=== PATIENT | female | born 2000 | race Caucasian/White ===

== ENCOUNTER 2020-06-05 12:53 | Emergency (ER) | payer MEDICAID ==
--- NOTE | 2020-06-05 13:40 | EDM.PDOC ---
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 Stated Complaint: MISCARRIAGE Time Seen by Provider: 06/05/20 13:15 Source of Information: Reports: Patient, Family, RN Notes Reviewed History Limitations: Reports: No Limitations - History of Present Illness INITIAL COMMENTS - FREE TEXT/NARRATIVE: 19-year-old female presents emergency department a complaint of vaginal bleeding, she is a 4 para 1 estimated about 10 weeks intrauterine , states over the last 24 hours she has had vaginal bleeding with passing of tissue however she feels like there is still something in her vaginal vault - Related Data Allergies Allergy/AdvReac Type Severity Reaction Status Date / Time No Known Allergies Allergy Verified 06/05/20 13:04 Home Meds: Home Meds NK [No Known Home Meds] 06/05/20 [History] Past Medical History 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: , 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 Social & Family History - Tobacco Use Tobacco Use Status *Q: Never Tobacco User - Caffeine Use Caffeine Use: Reports: None - Recreational Drug Use Recreational Drug Use: No ED ROS GENERAL - Review of Systems Review Of Systems: See Below Constitutional: Reports: No Symptoms : Reports: Irregular Menses ED EXAM - Physical Exam Exam: See Below Text/Narrative:: Speculum exam done in the presence of nursing staff the office is consistent with multiple parity there is some clot present in the os this is easily removed with ring forceps no other tissues are appreciated it is nontender Exam Limited By: No Limitations General Appearance: Alert, WD/WN, No Apparent Distress Course - Vital Signs Last Recorded V/S: Last Vital Signs Temp 98.1 F 06/05/20 13:05 Pulse 107 H 06/05/20 13:05 Resp 16 06/05/20 13:05 BP 132/81 06/05/20 13:05 Pulse Ox 99 06/05/20 13:05 - Orders/Labs/Meds Orders: Active Orders 24 hr Category Date Time Status OB Transvaginal [US] Stat Exams 06/05/20 13:38 Ordered CBC WITH AUTO DIFF [HEME] Stat Lab 06/05/20 13:44 Received Labs: Laboratory Tests 06/05/20 06/05/20 06/05/20 Range/Units 13:40 13:47 13:47 Hgb 10.6 L (12.0-15.0) g/dL HCG, Quant 267 H (0-6) mIU/mL Urine Color Yellow (YELLOW) Urine Appearance Slightly cloudy A (CLEAR) Urine pH 5.5 (5.0-8.0) Ur Specific [place] >= 1.030 (1.008-1.030) Urine Protein Negative (NEGATIVE) mg/dL Urine Glucose (UA) Negative (NEGATIVE) mg/dL Urine Ketones Negative (NEGATIVE) mg/dL Urine Occult Blood Moderate H (NEGATIVE) Urine Nitrite Negative (NEGATIVE) Urine Bilirubin Negative (NEGATIVE) Urine Urobilinogen 0.2 (0.2-1.0) EU/dL Ur Leukocyte Esterase Negative (NEGATIVE) Urine RBC 5-10 H (0-5) Urine WBC 0-5 (0-5) Ur Epithelial Cells Rare Amorphous Sediment Rare Urine Bacteria Rare Urine Mucus Not seen Departure - Departure Time of Disposition: 15:28 Disposition: Home, Self-Care 01 Condition: Good Clinical Impression: Incomplete - Discharge Information Instructions: Managing Loss Referrals: Anastacio Mojica MD [Primary Care Provider] - Forms: ED Department Discharge Additional Instructions: Continue with your vitamin, continue to be in contact with your ENGLISH HORN PLAYER provider call or return to the emergency department with worsening of symptoms Sepsis Event Note (ED) - Evaluation Sepsis Screening Result: No Definite Risk - Focused Exam Vital Signs: Vital Signs Temp Pulse Resp BP Pulse Ox 06/05/20 13:05 98.1 F 107 H 16 132/81 99 - My Orders Last 24 Hours: My Active Orders 06/05/20 13:38 OB Transvaginal [US] Stat 06/05/20 13:44 CBC WITH AUTO DIFF [HEME] Stat - Assessment/Plan Last 24 Hours: My Active Orders 06/05/20 13:38 OB Transvaginal [US] Stat 06/05/20 13:44 CBC WITH AUTO DIFF [HEME] Stat Plan: Assessment Acuity = acute Site and laterality = incomplete miscarriage Etiology = unknown Manifestations = none Location of injury = Home Lab values = hemoglobin 10.6 normochromic anemia, beta-hCG 267, urinalysis unremarkable CBC is pending ultrasound shows retained products of conception Plan I did discuss with her options including surgical medical or expectant management she has been in contact with her ENGLISH HORN PLAYER she will do expectant management her blood type is O+, follow-up with her ENGLISH HORN PLAYER per recommendations This note was dictated using [employer] voice recognition software please call with any questions on syntax or grammar.
--- NOTE | 2020-06-05 16:07 | CRLUS ---
INDICATION: Vaginal bleeding questionable miscarriage TECHNIQUE: Ultrasound OB pelvis transvaginal. Real-time kraus-scale imaging of the pelvis was performed. COMPARISON: None FINDINGS: The uterus measures 8.5 x 6.0 x 7.2 centimeters. There is a thickened heterogeneous endometrium with questionable minimal internal vascularity without evidence a pole or gestational sac. The ovaries are normal in size contour and echogenicity without evidence of mass, cyst, or torsion. Demonstration of likely a small corpus luteum within the right ovary. No fluid was seen in the cul-de-sac. IMPRESSION: Demonstration of a thickened heterogeneous endometrium without a gestational sac or pole likely representing spontaneous with minimal retained products of conception. Dictated by Neeraj Can MD @ Jun 05 2020 4:04PM Signed by Dr. Neeraj Can @ Jun 05 2020 4:06PM
== END 2020-06-05 15:40 | disposition home or self-care (01) ==
LOC: JP.ED 12:53
DX: O03.4 Incomplete spontaneous abortion without complication (principal)
CPT/HCPCS: 36415; 76817; 81001; 84702; 85018; 85025; 99284-25

== ENCOUNTER 2020-09-15 13:10 | Emergency (ER) | payer MEDICAID ==
--- NOTE | 2020-09-15 14:55 | EDM.PDOC ---
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 No cramping, but she wanted to get an ultrasound because she has miscarried in the past. No dysuria. Onset: Sudden (Bleeding started fairly suddenly this morning) Associated Symptoms: Reports: No Other Symptoms - Related Data Allergies Allergy/AdvReac Type Severity Reaction Status Date / Time No Known Allergies Allergy Verified 09/15/20 13:21 Home Meds: Home Meds Albuterol [Proventil Neb Soln] 3 ml INH Q4H PRN 09/15/20 [History] Albuterol [Ventolin HFA] 1 puff INH Q4H PRN 09/15/20 [History] Pnv,Calcium 72/Iron/Folic Acid [ Vitamin Plus Low Iron] 1 tab PO DAILY 09/15/20 [History] Progesterone, Micronized [Progesterone] 200 mg PO BID 09/15/20 [History] Past Medical History - Past Health History Medical/Surgical History: Denies Medical/Surgical History HEENT History: Reports: Impaired Vision Respiratory History: Reports: Asthma 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: , 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 Social & Family History - Tobacco Use Tobacco Use Status *Q: Never Tobacco User - Caffeine Use Caffeine Use: Reports: None - Recreational Drug Use Recreational Drug Use: No ED ROS GENERAL - Review of Systems Review Of Systems: See Below Constitutional: Denies: Fever, Chills HEENT: Reports: No Symptoms Respiratory: Reports: No Symptoms GI/Abdominal: Denies: Abdominal Pain, Nausea, Vomiting : Reports: No Symptoms Skin: Reports: No Symptoms Neurological: Reports: No Symptoms Psychiatric: Reports: Anxiety ED EXAM - Physical Exam Exam: See Below Exam Limited By: No Limitations General Appearance: Alert, No Apparent Distress Respiratory/Chest: No Respiratory Distress GI/Abdominal Exam: Non-Tender Neurological: Alert, Oriented Psychiatric: Anxious Skin Exam: Warm, Dry Course - Vital Signs Last Recorded V/S: Last Vital Signs Temp 97.9 F 09/15/20 13:26 Pulse 94 09/15/20 13:26 Resp 16 09/15/20 13:26 BP 138/69 09/15/20 13:26 Pulse Ox 99 09/15/20 13:26 - Orders/Labs/Meds Orders: Active Orders 24 hr Category Date Time Status OB 1st Tri Sgl 1st Gest [US] Stat Exams 09/15/20 15:02 Taken OB Transvaginal [US] Stat Exams 09/15/20 15:02 Taken Labs: Laboratory Tests 09/15/20 09/15/20 Range/Units 14:12 14:12 WBC 8.8 (4.5-11.0) K/uL RBC 4.61 (3.30-5.50) M/uL Hgb 13.4 D (12.0-15.0) g/dL Hct 39.8 (36.0-48.0) % MCV 86 (80-98) fL MCH 29 (27-31) pg MCHC 34 (32-36) % Plt Count 306 (150-400) K/uL Neut % (Auto) 66 (36-66) % Lymph % (Auto) 24 (24-44) % [place] % (Auto) 9 H (2-6) % Eos % (Auto) 1 L (2-4) % Baso % (Auto) 1 (0-1) % HCG, Quant 26144 H (0-6) mIU/mL - Re-Assessments/Exams Free Text/Narrative Re-Assessment/Exam: 09/15/20 14:54 CBC and quantitative beta-hCG were drawn. CBC is normal, beta-hCG is pending 09/15/20 15:04 Quant is almost 30,000 so an ultrasound was ordered. 09/15/20 16:15 Ultrasound confirmed an intrauterine a good heart rate but also a very small chorionic hemorrhage. The images were pushed to [facility] where her LEAD VULCANIZING OPERATOR is, and he can look at this on Thursday. She is already on progesterone supplements, so should be on general bedrest for the next few days until she can get some advice from Dr. Mojica her LEAD VULCANIZING OPERATOR. Departure - Departure Time of Disposition: 16:23 Disposition: Home, Self-Care 01 Clinical Impression: Vaginal bleeding in - Discharge Information Instructions: Subchorionic Hematoma Referrals: PCP,None [Primary Care Provider] - Forms: ED Department Discharge Care Plan Goals: General bedrest and avoiding extra activity is recommended until you get your advice from Dr. Mojica. The images were sent up to [facility] so you should be able to contact him on Thursday and he should be able to look at the pictures. Sepsis Event Note (ED) - Evaluation Sepsis Screening Result: No Definite Risk - Focused Exam Vital Signs: Vital Signs Temp Pulse Resp BP Pulse Ox 09/15/20 13:26 97.9 F 94 16 138/69 99 09/15/20 13:20 97.9 F 94 16 138/69 99 - My Orders Last 24 Hours: My Active Orders 09/15/20 15:02 OB 1st Tri Sgl 1st Gest [US] Stat OB Transvaginal [US] Stat - Assessment/Plan Last 24 Hours: My Active Orders 09/15/20 15:02 OB 1st Tri Sgl 1st Gest [US] Stat OB Transvaginal [US] Stat
--- NOTE | 2020-09-17 10:29 | US ---
INDICATION: bleeding early COMPARISON: None FINDINGS: There is a gestational sac in the uterus. Mean sac diameter is 1.5 cm. This correlates to a 6 week 2 day gestation. There is a pole. [place]-rump length is 0.3 cm correlating to a 6 week 0 day gestation. heart rate is 1 29 bpm. There is a yolk sac identified. There is a 1.6 x 1.9 x 1.4 cm fluid collection contiguous to the sac consistent with a subchorionic hemorrhage. IMPRESSION: Single live IUP at 6 weeks 0 day. 05/11/2021 Subchorionic hemorrhage described above
== END 2020-09-15 16:23 | disposition home or self-care (01) ==
LOC: JP.ED 13:10
DX: O20.9 Hemorrhage in early pregnancy, unspecified (principal); O99.511 Diseases of the respiratory system complicating pregnancy, first trimester; J45.909 Unspecified asthma, uncomplicated
CPT/HCPCS: 36415; 76801; 76801-26; 76817; 76817-26; 84702; 85025; 99282; 99284-25

== ENCOUNTER 2020-09-28 18:31 | Emergency (ER) | payer MEDICAID ==
--- NOTE | 2020-09-28 18:57 | EDM.PDOC ---
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 Patient is currently approximately 8 weeks and is . She is followed by PICKER / PACKER at [facility]. She has had a history of 2 miscarriages followed by a live followed by an additional miscarriage. Never evaluated her for cause of miscarriage. She was seen and evaluated in the ED on 09/15/2020 at which time she underwent an ultrasound showing a single live intrauterine with a heart rate of 129 bpm. She reports that she had acute onset of modest the bleeding that soaked light pad starting around 1800 hrs. this evening. She denies any cramping. Her previous work-up in the ED showed a subchorionic hemorrhage. - Related Data Allergies Allergy/AdvReac Type Severity Reaction Status Date / Time No Known Allergies Allergy Verified 09/28/20 18:49 Home Meds: Home Meds Albuterol [Proventil Neb Soln] 3 ml INH Q4H PRN 09/15/20 [History] Albuterol [Ventolin HFA] 1 puff INH Q4H PRN 09/15/20 [History] Pnv,Calcium 72/Iron/Folic Acid [ Vitamin Plus Low Iron] 1 tab PO DAILY 09/15/20 [History] Progesterone, Micronized [Progesterone] 200 mg PO BID 09/15/20 [History] Past Medical History - Past Health History Medical/Surgical History: Denies Medical/Surgical History HEENT History: Reports: Impaired Vision Respiratory History: Reports: Asthma PICKER / PACKER History: Reports: , Spontaneous Other PICKER / PACKER History: - Infectious Disease History Infectious Disease History: Reports: None Social & Family History - Tobacco Use Tobacco Use Status *Q: Never Tobacco User - Caffeine Use Caffeine Use: Reports: None - Recreational Drug Use Recreational Drug Use: No ED ROS GENERAL - Review of Systems Review Of Systems: See Below Constitutional: Reports: No Symptoms HEENT: Reports: No Symptoms Respiratory: Reports: No Symptoms Cardiovascular: Reports: No Symptoms Endocrine: Reports: No Symptoms GI/Abdominal: Reports: No Symptoms : Reports: Other (First trimester vaginal bleeding) Musculoskeletal: Reports: No Symptoms Skin: Reports: No Symptoms Neurological: Reports: No Symptoms Psychiatric: Reports: No Symptoms Hematologic/Lymphatic: Reports: No Symptoms Immunologic: Reports: No Symptoms ED EXAM - Physical Exam Exam: See Below Exam Limited By: No Limitations General Appearance: Alert, No Apparent Distress Eye Exam: Bilateral Eye: EOMI, PERRL GI/Abdominal Exam: Normal Bowel Sounds, Soft, Non-Tender Heart Tones: Not Young Movement: Not Appreciated Skin Exam: Warm, Dry, Intact, Normal Color Course - Vital Signs Last Recorded V/S: Last Vital Signs Temp 36.6 C 09/28/20 18:44 Pulse 93 09/28/20 18:44 Resp 16 09/28/20 18:44 BP 113/76 09/28/20 18:44 Pulse Ox 99 09/28/20 18:44 - Orders/Labs/Meds Orders: Active Orders 24 hr Category Date Time Status OB 1st Tri Sgl 1st Gest [US] Stat Exams 09/28/20 19:20 Ordered OB Transvaginal [US] Stat Exams 09/28/20 19:20 Ordered Labs: Laboratory Tests 09/28/20 09/28/20 Range/Units 19:12 19:12 WBC 9.7 (4.5-11.0) K/uL RBC 4.69 (3.30-5.50) M/uL Hgb 13.7 (12.0-15.0) g/dL Hct 40.3 (36.0-48.0) % MCV 86 (80-98) fL MCH 29 (27-31) pg MCHC 34 (32-36) % Plt Count 232 (150-400) K/uL Neut % (Auto) 67 H (36-66) % Lymph % (Auto) 24 (24-44) % [place] % (Auto) 8 H (2-6) % Eos % (Auto) 1 L (2-4) % Baso % (Auto) 0 (0-1) % HCG, Quant 390607 H (0-6) mIU/mL - Radiology Interpretation Free Text/Narrative:: Viewed the ultrasound showing a live intrauterine with a heart rate of 163. There is a very large subchorionic hemorrhage which effaces the gestational sac. The uterus is retroverted. [place]-rump length is 1.9 cm measuring 8 weeks 3 days. - Re-Assessments/Exams Free Text/Narrative Re-Assessment/Exam: 09/28/20 20:36 peers that the source of the bleeding is from an enlarging subchorionic hemorrhage. I recommend the patient follow-up on Thursday with her PICKER / PACKER up at [facility]. activity is 163 bpm which is is what would be expected at 8 weeks 3 days. There were no masses identified in the adnexa and ovaries appeared normal. There is no free fluid in the pelvis. At this time we will discharge the patient in satisfactory condition. Indications return to the ED were discussed. Departure - Departure Time of Disposition: 20:38 Disposition: Home, Self-Care 01 Clinical Impression: First trimester bleeding Subchorionic hemorrhage in first trimester Qualifiers: Fetus number: single or unspecified fetus Qualified Code(s): O41.8X10 - Other specified disorders of amniotic fluid and membranes, first trimester, not applicable or unspecified; O46.8X1 - Other antepartum hemorrhage, first trimester - Discharge Information Instructions: Vaginal Bleeding During , First Trimester, Subchorionic Hematoma Referrals: PCP,None [Primary Care Provider] - Forms: ED Department Discharge Care Plan Goals: I recommend following up with your PICKER / PACKER on Thursday the ultrasound did show a rather large subchorionic hemorrhage which was substantially more blood than was seen 2 weeks ago. activity was normal with a heart rate of 163 bpm which is within the normal range for this age of 8 weeks 3 days by measurement. Addition, your beta hCG quantitative has gone up as expected. These both point to your progressing normally. Sepsis Event Note (ED) - Evaluation Sepsis Screening Result: No Definite Risk - Focused Exam Vital Signs: Vital Signs Temp Pulse Resp BP Pulse Ox 09/28/20 18:44 36.6 C 93 16 113/76 99 - Problem List & Annotations (1) First trimester bleeding SNOMED Code(s): 03631250, 89146583 Code(s): O20.9 - HEMORRHAGE IN EARLY , UNSPECIFIED Status: Acute Priority: High Current Visit: Yes (2) Subchorionic hemorrhage in first trimester SNOMED Code(s): 850017371 Code(s): O41.8X10 - OTH DISRD OF AMNIOTIC FLUID AND MEMBRNS, FIRST TRI, UNSP; O46.8X1 - OTHER ANTEPARTUM HEMORRHAGE, FIRST TRIMESTER Status: Acute Priority: High Current Visit: Yes Qualifiers: Fetus number: single or unspecified fetus Qualified Code(s): O41.8X10 - Other specified disorders of amniotic fluid and membranes, first trimester, not applicable or unspecified; O46.8X1 - Other antepartum hemorrhage, first trimester - Problem List Review Problem List Initiated/Reviewed/Updated: Yes - My Orders Last 24 Hours: My Active Orders 09/28/20 19:20 OB 1st Tri Sgl 1st Gest [US] Stat OB Transvaginal [US] Stat - Assessment/Plan Last 24 Hours: My Active Orders 09/28/20 19:20 OB 1st Tri Sgl 1st Gest [US] Stat OB Transvaginal [US] Stat
--- NOTE | 2020-10-01 09:03 | US ---
INDICATION: 1st trimester bleeding COMPARISON: 09/15/2020 FINDINGS: Single live IUP at 8 weeks 3 days based on [place]-rump length of 1.9 cm heart rate: 163 BPM. 05/07/2021 Yolk sac seen. Other findings: Previously described chorionic bleed now measures 3.4 x 1.7 x 3.2 cm IMPRESSION: Single live IUP at 8 weeks 3 days Enlarging subchorionic hemorrhage
== END 2020-09-28 20:55 | disposition home or self-care (01) ==
LOC: JP.ED 18:31
DX: O20.8 Other hemorrhage in early pregnancy (principal); O99.511 Diseases of the respiratory system complicating pregnancy, first trimester; J45.909 Unspecified asthma, uncomplicated; Z3A.08 8 weeks gestation of pregnancy; Z79.899 Other long term (current) drug therapy
CPT/HCPCS: 36415; 76801; 76801-26; 84702; 85025; 99283; 99284-25